=== PATIENT | male | born 1985 | race Hispanic/Latino ===

== ENCOUNTER 2018-10-06 13:48 | Emergency (ER) | payer SELFPAY ==
[2018-10-06] MEDS ORDERED: Dexamethasone 10 MG/ML VIAL ONE (14:07)
== END 2018-10-06 14:17 | disposition home or self-care (01) ==
LOC: SCSER 13:48
DX: J02.9 Acute pharyngitis, unspecified (principal)
CPT/HCPCS: 87081; 87430; 99283; J1100